=== PATIENT | female | born 1985 | race Caucasian/White ===

== ENCOUNTER 2016-08-16 17:36 | Emergency (ER) | payer OTHER ==
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
[2016-08-16 17:53] VITALS: BP 114/79; PULSE 75; RESP 18; TEMP 98.1; O2SAT 99; BMI 40.7
== END 2016-08-16 18:38 | disposition home or self-care (01) ==
LOC: ED 17:36
DX: M54.9 Dorsalgia, unspecified (principal); V49.49XA Driver injured in collision with other motor vehicles in traffic accident, initial encounter; Y92.410 Unspecified street and highway as the place of occurrence of the external cause